=== PATIENT | male | born 1965 | race Caucasian/White ===

== ENCOUNTER 2017-11-24 16:23 | Emergency (ER) | payer OTHER ==
[2017-11-24] MEDS ORDERED: IPRATROPIUM/ALBUTEROL 0.5-2.5 MG/3 ML AMPUL NEB ONE (16:38)
[2017-11-24] MEDS ORDERED: METHYLPREDNISOLONE INJ 125 MG/2 ML SDV IV ONE (16:38)
--- NOTE | 2017-11-24 16:44 | ER Document Report ---
ED Medical Screen (RME) - General Chief Complaint: ETOH Abuse Stated Complaint: ETOH Time Seen by Provider: 11/24/17 16:33 Notes: This is a 52-year-old alcoholic severe COPD to the ER for evaluation of suicidal ideation, cannot breathe, alcohol intoxication. Patient is attended to by his ex-girlfriend. Patient has been trying to "drink himself to ". Patient states that he wants to . He does not care about living anymore. Does not care about taking his medication. Cannot breathe. Has not been taking his COPD medications. Has not been using his oxygen. Just wants to . Cannot tell me how much he had to drink today. I have greeted and performed a rapid initial assessment of this patient. A comprehensive ED assessment and evaluation of the patient, analysis of test results and completion of the medical decision making process will be conducted by additional ED providers. TRAVEL OUTSIDE OF THE [place] IN LAST 30 DAYS: No - Related Data Allergies/Adverse Reactions: No Known Allergies Allergy (Verified 11/24/17 16:24) Past Medical History - General Information source: Patient Cannot obtain history due to: Altered mental status - Social History Cigarette use (# per day): Yes Frequency of alcohol use: Heavy Pulmonary Medical History: Reports: Hx Asthma, Hx COPD Renal/ Medical History: Denies: Hx Peritoneal Dialysis GI Medical History: Reports: Hx Colonoscopy, Hx Endoscopy Musculoskeltal Medical History: Reports Hx Arthritis, Reports Hx Musculoskeletal Trauma Traumatic Medical History: Reports: Hx Fractures - Ribs Past Surgical History: Reports: Hx Abdominal Surgery - Ventral hernia above the umbilicus - Immunizations Immunizations up to date: Yes Review of Systems - Review of Systems Constitutional: denies: Fever, Malaise, Weakness EENT: No symptoms reported Cardiovascular: No symptoms reported Respiratory: Cough, Short of breath, Wheezing Gastrointestinal: No symptoms reported Genitourinary: No symptoms reported Male Genitourinary: No symptoms reported Musculoskeletal: No symptoms reported Skin: No symptoms reported Hematologic/Lymphatic: No symptoms reported Neurological/Psychological: Other - Depression, suicidal ideation, alcoholism Physical Exam - Vital signs Vitals: Temp Pulse Resp BP Pulse Ox 98.1 F 108 H 16 165/97 H 89 L 11/24/17 16:29 11/24/17 16:29 11/24/17 16:29 11/24/17 16:29 11/24/17 16:29 Interpretation: Tachycardic, Hypoxic, Tachypneic Notes: Significant work of breathing, tripoding - General General appearance: Appears well, Alert - Respiratory Respiratory status: Respiratory distress, Tachypnea, Tripod position Chest status: Nontender Breath sounds: Decreased air movement, Wheezing - Cardiovascular Rhythm: Tachycardia Heart sounds: Normal auscultation Murmur: No - Abdominal Inspection: Normal Distension: No distension Bowel sounds: Normal Tenderness: Nontender Organomegaly: No organomegaly - Neurological Neuro grossly intact: Yes Alla Coma Scale Motor: Obeys Commands Sensory: Normal Course - Re-evaluation Re-evalutation: 11/24/17 16:43 At this time patient is intoxicated and talking about wanting to hurt himself, having significant work of breathing. Will place on monitor, give IV steroids, breathing treatments, chest x-ray, petition for legal hold and reassess. - Vital Signs Vital signs: Temp Pulse Resp BP Pulse Ox 98.1 F 108 H 16 165/97 H 89 L 11/24/17 16:29 11/24/17 16:29 11/24/17 16:29 11/24/17 16:29 11/24/17 16:29
[2017-11-24] MEDS: MAGNESIUM SULFATE/D5W 1 GM/100 ML RTUPB IV SCH ×2 (16:49→17:54)
[2017-11-24 17:11] LABS: ABSOLUTE BASOPHILS # (AUTO) 0.1 10^3/uL (0.0-0.2); ABSOLUTE EOSINOPHILS # (AUTO) 0.4 10^3/uL (0.0-0.6); ABSOLUTE LYMPHOCYTES (AUTO) 2.3 10^3/uL (0.5-4.7); ABSOLUTE MONOCYTES (AUTO) 0.8 10^3/uL (0.1-1.4); ABSOLUTE NEUT (AUTO) 6.7 10^3/uL (1.7-8.2); BASOPHILS % (AUTO) 0.9 % (0-2); EOSINOPHILS % (AUTO) 3.5 % (0-6); HEMATOCRIT 43.8 % (37.9-51.0); HEMOGLOBIN 15.1 g/dL (13.5-17.0); LYMPHOCYTES % (AUTO) 22.6 % (13-45); MEAN CORPUSCULAR HEMOGLOBIN 31.3 pg (27.0-33.4); MEAN CORPUSCULAR HGB CONC 34.4 g/dL (32.0-36.0); MEAN CORPUSCULAR VOLUME 91 fl (80-97); MONOCYTES % (AUTO) 7.5 % (3-13); PLATELET COUNT 235 10^3/uL (150-450); RED BLOOD COUNT 4.81 10^6/uL (4.35-5.55); RED CELL DISTRIBUTION WIDTH 13.9 % (11.5-14.0); SEGMENTED NEUTROPHILS % (AUTO) 65.5 % (42-78); TOTAL CELLS COUNTED % (AUTO) 100 %; WHITE BLOOD COUNT 10.2 10^3/uL (4.0-10.5)
[2017-11-24 17:22] LABS: ALANINE AMINOTRANSFERASE 279 U/L (21-72); ALBUMIN 4.4 g/dL (3.5-5.0); ALKALINE PHOSPHATASE 80 U/L (38-126); ANION GAP 15 (5-19); ASPARTATE AMINO TRANSFERASE 274 U/L (17-59); BILIRUBIN,DIRECT 0.3 mg/dL (0.0-0.4); BILIRUBIN,TOTAL 0.4 mg/dL (0.2-1.3); BLOOD UREA NITROGEN 8 mg/dL (7-20); CALCIUM 8.9 mg/dL (8.4-10.2); CARBON DIOXIDE 30 mmol/L (22-30); CHLORIDE 96 mmol/L (98-107); GLUCOSE 112 mg/dL (75-110); POTASSIUM 4.7 mmol/L (3.6-5.0); SODIUM 140.5 mmol/L (137-145); TOTAL PROTEIN 7.6 g/dL (6.3-8.2)
--- NOTE | 2017-11-24 17:29 | ER Document Report ---
ED Substance Abuse / Acc. OD - General Chief Complaint: ETOH Abuse Stated Complaint: ETOH Time Seen by Provider: 11/24/17 16:33 Information source: Patient Notes: Patient is a 52-year-old male who presents stating he has been drinking for the last 15 days and is also had some shortness of breath. Patient states he has a long history of COPD. He states he is not on home oxygen. Patient told the triage doctor that he was thinking of killing himself. He was satting 89% on room air. Patient states he has intermittent chest discomfort for "many months ". He denies any calf pain, leg swelling, or fevers. He denies previously being intubated. Patient is very upset at this time and states he would like to go home. He states he is not suicidal at this time and does not want treatment. TRAVEL OUTSIDE OF THE [place] IN LAST 30 DAYS: No - HPI Patient complains to provider of: Alcohol abuse Onset: Other - many days Onset/Duration: Gone Quality of pain: Other - See above Severity: Moderate Pain Level: Denies Situational problems related to: Other - See above Associated Symptoms: Other - See above Similar symptoms previously: No Recently seen / treated by doctor: No - Related Data Allergies/Adverse Reactions: No Known Allergies Allergy (Verified 11/24/17 16:24) Past Medical History - General Information source: Patient - Social History Smoking Status: Current Every Day Smoker Cigarette use (# per day): Yes Chew tobacco use (# tins/day): No Smoking Education Provided: No Frequency of alcohol use: Heavy Drug Abuse: None Family History: Arthritis, CAD, COPD, DM, Hyperlipidemia, Hypertension, Malignancy. denies: CVA, Thyroid Disfunction Patient has suicidal ideation: Yes Patient has homicidal ideation: No Pulmonary Medical History: Reports: Hx Asthma, Hx COPD Renal/ Medical History: Denies: Hx Peritoneal Dialysis GI Medical History: Reports: Hx Colonoscopy, Hx Endoscopy Musculoskeletal Medical History: Reports Hx Arthritis, Reports Hx Musculoskeletal Trauma Traumatic Medical History: Reports: Hx Fractures - Ribs Past Surgical History: Reports: Hx Abdominal Surgery - Ventral hernia above the umbilicus - Immunizations Immunizations up to date: Yes Review of Systems - Review of Systems Constitutional: denies: Fever EENT: denies: Eye discharge, Nose discharge Cardiovascular: Chest pain. denies: Palpitations Respiratory: denies: Short of breath Gastrointestinal: denies: Abdominal pain, Vomiting Genitourinary: denies: Dysuria Musculoskeletal: denies: Leg swelling Skin: Other - no hives. denies: Rash Neurological/Psychological: Other - no slurred speech -: Yes All other systems reviewed and negative Physical Exam - Vital signs Vitals: Temp Pulse Resp BP Pulse Ox 98.1 F 108 H 16 165/97 H 89 L 11/24/17 16:29 11/24/17 16:29 11/24/17 16:29 11/24/17 16:29 11/24/17 16:29 Notes: Reviewed vital signs and nursing note as charted by RN. CONSTITUTIONAL: Patient smells strongly of alcohol HEAD: Normocephalic; atraumatic EYES: PERRL ENT: Normal nose; no rhinorrhea; moist mucous membranes NECK: Supple without meningismus; non-tender CARD: Tachycardic and regular; no murmurs, no clicks, no rubs, no gallops; symmetric distal pulses RESP: Normal chest excursion without splinting or tachypnea; patient has some mild bilateral end expiratory wheezing with no rhonchi appreciated ABD/GI: Normal bowel sounds; non-distended; soft, non-tender BACK: The back appears normal and is non-tender to palpation EXT: Normal ROM in all joints; no effusions, no edema SKIN: Spider angiomatas to the chest NEURO: Moves all extremities equally; Motor and sensory function intact PSYCH: The patient's mood and manner are appropriate. Grooming and personal hygiene are appropriate. Course - Re-evaluation Re-evalutation: 11/24/17 17:26 Given the history and physical examination, I will order duo nebulizers, steroids, x-ray portable of the chest, cardiac labs, and a psychiatric laboratory profile. Given that the patient states he has had this mild intermittent chest pain for "months" with no calf pain, leg swelling, recent trips or travel, with a strong history of COPD, I do believe pulmonary embolism to be unlikely. EKG shows a heart of 91, normal sinus rhythm, normal axis, no ST elevation or depression. Patient would like to go home. Patient has ripped out his IV and states he would like to leave. I have explained to the patient given that he admittedly expressed suicidal ideations, that it is currently in the best interest to keep the patient overnight at least for psychiatric evaluation. Patient has been more calm and agreeable to this at this time. 11/24/17 18:07 Labs as recorded. Blood alcohol level as recorded. Troponin as recorded. Patient's wheezing is improved. Steroids have been given. Patient has refused x-ray 3. He understands that I cannot fully assess his lungs without this full evaluation. - Vital Signs Vital signs: Temp Pulse Resp BP Pulse Ox 98.1 F 108 H 16 165/97 H 89 L 11/24/17 16:29 11/24/17 16:29 11/24/17 16:29 11/24/17 16:29 11/24/17 16:29 - Laboratory Result Diagrams: 11/24/17 16:54 11/24/17 16:54 Laboratory results interpreted by me: 11/24/17 16:54 Chloride 96 L Glucose 112 H AST 274 H ALT 279 H Salicylates < 1.0 L Acetaminophen < 10 L Serum Alcohol 394 H* Discharge - Discharge Clinical Impression: Alcohol abuse, Suicidal ideation, COPD with acute exacerbation Acute alcohol intoxication Qualifiers: Complication of substance-induced condition: with unspecified complication Qualified Code(s): F10.929 - Alcohol use, unspecified with intoxication, unspecified Condition: Fair
[2017-11-24 17:30] LABS: ACETAMINOPHEN < 10 ug/mL (10-30); SALICYLATE < 1.0 mg/dL (2.0-20.0)
[2017-11-24 17:32] LABS: ALCOHOL 394 mg/dL (NONE DETECTED)
[2017-11-24] MEDS ORDERED: LORAZEPAM INJ 2 MG/1 ML VIAL IV ONE (18:08)
[2017-11-24] MEDS ORDERED: NICOTINE 21 MG/24 HR PATCH.TD24 TD ONE (18:31)
--- NOTE | 2017-11-24 19:20 | RADIOLOGY REPORT (SQ) ---
EXAM DESCRIPTION: CHEST SINGLE VIEW COMPLETED DATE/TIME: 11/24/2017 7:04 pm REASON FOR STUDY: sob COMPARISON: None. EXAM PARAMETERS: NUMBER OF VIEWS: One view. TECHNIQUE: Single frontal radiographic view of the chest acquired. RADIATION DOSE: NA LIMITATIONS: Lordotic positioning, rotated towards the [place]OV[place] orientation FINDINGS: LUNGS AND PLEURA: No opacities, masses or pneumothorax. No pleural effusion. MEDIASTINUM AND HILAR STRUCTURES: No masses. Contour normal. HEART AND VASCULAR STRUCTURES: Heart normal in size. Normal vasculature. BONES: No acute findings. HARDWARE: None in the chest. OTHER: No other significant finding. IMPRESSION: NO ACUTE RADIOGRAPHIC FINDING IN THE CHEST. TECHNICAL DOCUMENTATION: JOB ID: [id number] [employer]/- All Rights Reserved Reading location - IP/workstation name: [email or web address]
[2017-11-24 23:08] LABS: APPEARANCE,URINE CLEAR; BILIRUBIN,URINE NEGATIVE (NEGATIVE); COLOR,URINE STRAW; GLUCOSE, URINE NEGATIVE (NEGATIVE); KETONES,URINE NEGATIVE (NEGATIVE); LEUKOCYTE ESTERASE,URINE NEGATIVE (NEGATIVE); NITRITE,URINE NEGATIVE (NEGATIVE); PROTEIN,URINE NEGATIVE (NEGATIVE); URINE SPECIFIC GRAVITY 1.004; UROBILINOGEN,URINE NEGATIVE mg/dL (<2.0)
[2017-11-24 23:27] LABS: ARTERIAL BLOOD FIO2 2L; ARTERIAL BLOOD H2CO3 1.95 mmol/L (1.05-1.35); ARTERIAL BLOOD HCO3 29.6 mmol/L (20-26); ARTERIAL BLOOD O2 SATURATION 96.6 % (94-98); ARTERIAL BLOOD PCO2 64.7 mmHg (35-45); ARTERIAL BLOOD PH 7.28 (7.35-7.45); ARTERIAL BLOOD PO2 99.8 mmHg (80-100); ARTERIAL BLOOD TOTAL CO2 31.6 mmol/L (23-27)
[2017-11-24 23:32] LABS: URINE AMPHETAMINES SCREEN NEGATIVE; URINE BARBITURATES SCREEN NEGATIVE; URINE BENZODIAZEPINES SCREEN NEGATIVE; URINE COCAINE SCREEN NEGATIVE; URINE MARIJUANA (THC) SCREEN NEGATIVE; URINE METHADONE SCREEN NEGATIVE; URINE PHENCYCLIDINE SCREEN NEGATIVE
[2017-11-25] MEDS ORDERED: NICOTINE 21 MG/24 HR PATCH.TD24 TD ONE (00:15)
[2017-11-25] MEDS ORDERED: LORAZEPAM INJ 2 MG/1 ML VIAL ONE (06:17)
[2017-11-25] MEDS ORDERED: LORAZEPAM INJ 2 MG/1 ML VIAL IV ONE ×2 (06:17→06:18)
--- NOTE | 2017-11-25 09:20 | ER Document Report ---
Doctor's Note Notes: 11/25/17 09:20 Patient was seen and assessed yesterday secondary to suicidal ideations, alcohol intoxication, and a COPD exacerbation. Patient was provided steroids yesterday. X-ray showed no obvious infiltrate. Nebulizers relieved the wheezing. Initial ABG as recorded. Patient is currently sleeping in no acute distress. Awaiting psychiatric evaluation. 11/25/17 14:26 Repeat ABG is recorded. Patient feels much better. I have provided a repeat prednisone dose. The psychology team is seen and assessed the patient and they believe that the patient does not need IVC requirements at this time. Patient is now sober denies any suicidal or homicidal ideations. They have called the girlfriend who is comfortable trying to help the patient go to the [facility] [place]. The psychology team is contacted [facility] who will call him tomorrow. They will also help him to be placed to the [facility]. Patient is comfortable with this plan and denies any thoughts of injuring himself or others at this time. We will provide the prescriptions as recommended and will also provide an albuterol nebulizer and a few more days of steroids.
--- NOTE | 2017-11-25 09:48 | EKG REPORT ---
SEVERITY:- BORDERLINE ECG - SINUS OR ECTOPIC ATRIAL RHYTHM BORDERLINE T ABNORMALITIES, ANT-LAT LEADS : Confirmed by: Jorge Bedolla 25-Nov-2017 09:48:12
[2017-11-25] MEDS ORDERED: BUSPIRONE HCL 10 MG TABLET PO SCH (11:00)
[2017-11-25] MEDS ORDERED: VENLAFAXINE HCL 37.5 MG CAP.SR.24H PO SCH (11:00)
[2017-11-25] MEDS ORDERED: PREDNISONE 20 MG TABLET PO SCH (11:15)
[2017-11-25] MEDS ORDERED: IPRATROPIUM/ALBUTEROL 0.5-2.5 MG/3 ML AMPUL NEB SCH (11:45)
[2017-11-25 12:53] LABS: ARTERIAL BLOOD BASE EXCESS 6.4 mmol/L; ARTERIAL BLOOD H2CO3 1.51 mmol/L (1.05-1.35); ARTERIAL BLOOD HCO3 32.2 mmol/L (20-26); ARTERIAL BLOOD O2 SATURATION 92.9 % (94-98); ARTERIAL BLOOD PCO2 50.2 mmHg (35-45); ARTERIAL BLOOD PH 7.43 (7.35-7.45); ARTERIAL BLOOD PO2 64.9 mmHg (80-100); ARTERIAL BLOOD TOTAL CO2 33.7 mmol/L (23-27)
[2017-11-25 13:08] LABS: ARTERIAL BLOOD FIO2 ROOM AIR
[2017-11-25] MEDS ORDERED: ALBUTEROL SULFATE HFA (90 MCG/PUFF) 8 GM MDI (1 MDI/ER DISP) IH PRN (14:33)
[2017-11-25 14:48] VITALS: BP 149/89
--- NOTE | 2017-11-26 20:39 | PSYCHOLOGICAL NOTE ---
Psych Note - Psych Note Psych Note: Pt came into the hospital for alcohol abuse. Patient presents very sad, hopeless demeanor and mood. States that he and his girlfriend had an argument about his drinking and he "felt" like ending it. Said he would probably do it with a gun but did not have specific timeline, place or scenario. Pt does not own any guns, no other access to weapons. GF corroborated that they had been fighting about his drinking and his statement is what prompted her to bring him to the hospital. Pt states that he has never attempted suicide but is depressed. GF kicked him out, so he lost his job. Family in [place]. Pt. was inpatient in [place] about 15 years ago for 30 days. [facility] for depression and anxiety. Two previous failed marriages. Hasn't been in treatment since then. No or medical providers. GF shared she thinks that he is trying to drink himself to . Medication Recommendations: Effexor 37.5mg daily Buspar 10 mg 2times per day Diagnosis: Alcohol abuse, F10.10, Major depressive disorder, recurrent F33.0 Impression/Plan: Patient can be cleared [facility]. Gabriela from [facility] has been contacted and will pick the patient up upon discharge. Patient admits to drinking daily but is interested in sobriety and interested in the [facility] in [place]. This Clinician provided the patient with the number to [facility] and other resource information.
== END 2017-11-25 15:15 | disposition home or self-care (01) ==
LOC: ER 16:23
DX: F10.129 Alcohol abuse with intoxication, unspecified (principal); Y90.9 Presence of alcohol in blood, level not specified; R45.851 Suicidal ideations; J44.1 Chronic obstructive pulmonary disease with (acute) exacerbation; R06.02 Shortness of breath; R07.9 Chest pain, unspecified; Q82.8 Other specified congenital malformations of skin; R00.0 Tachycardia, unspecified; F17.210 Nicotine dependence, cigarettes, uncomplicated; Z82.49 Family history of ischemic heart disease and other diseases of the circulatory system
CPT/HCPCS: 93005; 96376; 94640 ×2; 99285; 96375; 96365; 96366; 36415; 80307 ×4; 82803; 85025; 80053; 81001; 84484; 71045; 93010; J3490 ×2; J2930; J2060 ×2; J3475; J7512; J7620 ×2